=== PATIENT | male | born 1990 | race Caucasian/White ===

== ENCOUNTER → 2021-08-06 | Outpatient (CLI) | payer OTHER ==
[~2021-08-06] MED LIST: BETAMETHASONE D15 G1 TP; ELIDEL 100G TOP; INDERAL 20MG20 MG PO; LEXAPRO 10MG10 MG PO; MUCINEX 60600 MG/TA1 PO; MULTI VITAMINS1 TAB PO; NORCO 325 MG-51 TAB PO; PYRIDIUM 100MG100 MG PO; TYLENOL 325MG325 MG PO
== END ==
LOC: COL.RAD 10:39
DX: N20.2 Calculus of kidney with calculus of ureter (principal)
CPT/HCPCS: Q9967

== ENCOUNTER 2021-08-08 05:55 | Day surgery (SDC) | payer OTHER ==
[2021-08-08] VITALS (8 sets, daily range): BP systolic 115–125; BP diastolic 68–85; PULSE 67–82; TEMP 97.6–98
[~2021-08-08] VITALS: Ht 185.4 cm; Wt 98.2 kg
[2021-08-08] MEDS ORDERED: LEXAPRO 10MG10 MG PO (06:16)
[2021-08-08] MEDS ORDERED: BETAMETHASONE D15 G1 TP (06:17)
[2021-08-08] MEDS ORDERED: INDERAL 20MG20 MG PO (06:18)
[2021-08-08] MEDS ORDERED: ELIDEL 100G TOP (06:19)
[2021-08-08] MEDS ORDERED: MUCINEX 60600 MG/TA1 PO (06:21)
[2021-08-08] MEDS ORDERED: TYLENOL 325MG325 MG PO (06:21)
[2021-08-08] MEDS ORDERED: MULTI VITAMINS1 TAB PO (06:22)
--- NOTE | 2021-08-08 06:50 | NUR ---
PATIENT UP TO ROOM 349. MED RX COMPLETED WITH PT AND PTS SPOUSE. PRE OP CHECKLIST COMPLETED. IV TO L HAND STARTED BY SUZAN CHEUNG. LR TO STRAIGHT TUBING INFUSING. CONSENT FOR SURGERY SIGNED AND IN THE CHART. PATIENTS QUESTIONS ANSWERED. AWAITING OR.
--- NOTE | 2021-08-08 07:40 | NUR ---
PATIENT GOING DOWN TO OR. FOREIGN EXCHANGE CLERK ADMITTED HIM, CONSENT ON CHART. AT BEDSIDE.
[2021-08-08] MEDS ORDERED: PYRIDIUM 100MG100 MG PO (08:26)
[2021-08-08] MEDS ORDERED: NORCO 325 MG-51 TAB PO (08:26)
--- NOTE | 2021-08-08 09:15 | NUR ---
PATIENT BACK IN ROOM 349 POST OP. A&O. VSS. DENIES PAIN OR N/V. TOLERATING ICE CHIPS & LIQUIDS WELL. PATIENT SHOWN HOW TO ORDER FOOD. IV FLUIDS INFUSING INTO LEFT HAND IV. HEAD TO TOE ASSESSMENT COMPLETE. AT BEDSIDE. PATIENT WILL DISCHARGE HOME LATER TODAY.
--- NOTE | 2021-08-08 11:25 | NUR ---
SW met with patient to complete intake. Patient's spouse present John Jameson [phone]. Patient stated that he lives in [facility] with spouse, does not utilize DME and is independent with ADL's. Patient states that his PCP is Dr. Patrick Nunez, and pharmacy is [facility]. Patient provides that he does not have anyone appointed as his DPOA. SW provided information on DPOA documenation and left documenation with patient and spouse to review. Plan up on DC is to return to home. SW will continue to follow. DC Plan: home
--- NOTE | 2021-08-08 12:00 | NUR ---
PATIENT DOING WELL. VSS. TOLERATING LIQUIDS & CRACKERS & ICE CREAM. PATIENT ORDERED LUNCH. AMBULATED TO BATHROOM AND WAS ABLE TO VOID. PATIENT WILL DISCHARGE SOMETIME AFTER LUNCH
--- NOTE | 2021-08-08 12:29 | NUR ---
Uke Operator visited with patient briefly but nothing else needed at this time.
--- NOTE | 2021-08-08 13:36 | NUR ---
PATIENT HAS MEET DISCHARGE CRITERIA AND IS FEELING GOOD. GAVE DISCHARGE INSTRUCTIONS, E-SCRIPTS SENT, AND UROLOGY OFFICE WILL CALL HIM FOR A F/U APT. ANSWERED QUESTIONS/CONCERNS. DC'D LEFT HAND IV SITE AND COVERED WITH GAUZE & COBAN. PAT[facility] IS DRESSED, [facility]
== END 2021-08-08 13:37 | disposition home or self-care (01) ==
LOC: SURG 05:55 → SDCO 05:55
DX: N20.1 Calculus of ureter (principal); F32.A Depression, unspecified; F41.9 Anxiety disorder, unspecified; E78.5 Hyperlipidemia, unspecified; Z79.899 Other long term (current) drug therapy
CPT/HCPCS: OP; C1769; C2617; J0690; J1100; J1885; J2405; J2704; J3010; Q9967

== ENCOUNTER 2021-12-31 03:06 | Emergency (ER) | payer OTHER ==
[~2021-12-31] VITALS: Ht 185.4 cm; Wt 99.1 kg
[2021-12-31 03:11] VITALS: TEMP 97.8
[2021-12-31 04:25] LABS: BASO % 0.3 % (0.0-2.0); EOS # 0.2 K/mm3 (0.0-0.7); EOS % 1.2 % (0.0-4.0); GRAN # 8.4 K/mm3 (1.4-6.5); GRAN % 66.4 % (42.2-75.2); HEMATOCRIT 42.5 % (42.0-52.0); HEMOGLOBIN 14.3 g/dl (13.5-18.0); LYMPH # 2.9 K/mm3 (1.2-3.4); LYMPH % 22.7 % (20.0-51.0); MEAN CELL VOLUME 90 fl (80.0-100.0); MEAN CORPUSCULAR HEMOGLOBIN 30 pg (27-31); MEAN CORPUSCULAR HGB CONC 34 g/dl (33.0-37.0); MEAN PLATELET VOLUME 10.8 fl (7.4-10.4); MONO # 1.2 K/mm3 (0.1-0.6); MONO % 9.1 % (1.7-9.3); PLATELET COUNT 259 K/mm3 (130-400); RED BLOOD COUNT 4.75 M/mm3 (4.20-5.60); REDCELL DISTRIBUTION WIDTH-CV 11.9 % (11.5-14.5)
[2021-12-31 04:41] LABS: ALBUMIN 4.2 gm/dL (3.5-5.0); BILIRUBIN,TOTAL 0.3 mg/dL (0.2-1.2); CALCIUM 9.8 mg/dL (8.4-10.2); CREATININE, serum 1.39 mg/dL (0.72-1.25); POTASSIUM 3.3 mmol/L (3.5-4.5); TOTAL PROTEIN 8.5 gm/dL (6.2-8.1)
[2021-12-31 06:31] LABS: COLLECTION METHOD CLEAN CATCH
[2021-12-31] MEDS ORDERED: ZOFRAN ODT4 MG PO (06:55)
[2021-12-31] MEDS ORDERED: PERCOCET 325 MG1 TA2 PO (06:55)
[2021-12-31] MEDS ORDERED: FLOMAX 0.40.4 MG/CAP PO (06:55)
[2021-12-31 07:00] LABS: MUCOUS Present (NOT PRESENT); SQUAMOUS EPITHELIAL 0-2 /hpf (0-10); URINE BACTERIA None Seen /hpf (NONE SEEN); URINE RBC >50 /hpf (0-2)
[2021-12-31 07:01] LABS: PH 5 (5-8); URINE APPEARANCE Hazy (CLEAR/HAZY); URINE BILIRUBIN Negative (NEGATIVE); URINE BLOOD 3+ (NEGATIVE); URINE COLOR Yellow (YELLOW); URINE GLUCOSE Negative (NEGATIVE); URINE KETONE Negative (NEGATIVE); URINE LEUKOCYTE ESTERASE Negative (NEGATIVE); URINE NITRATE Negative (NEGATIVE); URINE PROTEIN(semi-quant) Negative (NEGATIVE); URINE UROBILINOGEN Negative (NEGATIVE)
[2021-12-31 07:51] VITALS: BP 118/80; PULSE 94
== END 2021-12-31 08:00 | disposition home or self-care (01) ==
LOC: COL.ER 03:06
PROVIDERS: Personal Emergency Response Attendant
DX: N13.2 Hydronephrosis with renal and ureteral calculous obstruction (principal)
CPT/HCPCS: J1170; J1885; J2270; J2405; J3010; J7030

== ENCOUNTER 2023-09-21 13:30 | Outpatient (RCR) | payer OTHER ==
[~2023-09-21 13:30] MED LIST changes: +FLOMAX 0.40.4 MG/CAP PO; +PERCOCET 325 MG1 TA2 PO; +ZOFRAN ODT4 MG PO
== END 2023-09-25 | disposition home or self-care (01) ==
LOC: WSPT
DX: M54.50 Low back pain, unspecified (principal)

== ENCOUNTER 2023-11-08 13:30 | Outpatient (RCR) | payer OTHER | END 2023-11-25 | disposition home or self-care (01) | LOC: WSPT | DX: M54.50 Low back pain, unspecified (principal) ==